=== PATIENT | male | born 1960 | race Caucasian/White ===

== ENCOUNTER 2018-07-14 10:16 | Emergency (ER) | payer OTHER ==
[2018-07-14 10:31] VITALS: BP 141/87; PULSE 91; TEMP 98.4; BMI 30.4
--- NOTE | 2018-07-14 10:52 | PDOC ---
History of Present Illness - General Chief Complaint: Rectal Bleed Stated Complaint: RECTAL BLEED Time Seen by Provider: 07/14/18 10:25 History Source: Patient Exam Limitations: No Limitations - History of Present Illness Initial Comments: 07/14/18 11:14 HPI 58 YOM with no medical history presenting with mildly painful rectal bleeding intermittently x 1 month. He notes when he makes BM, he wipes and there is bright red blood staining the tissue paper. No h/o constipation or diarrhea, usually has regular BMs. Pt notes he has prior history of abscess, s/p uncomplicated I&D by surgeon in his buttock region. Denies fever, chills, chest pain, SOB, palpitation, weakness, N, V, D, abdominal pain, bladder and bowel problems, leg swelling, No sick contacts or travel. No new changes in medications. No suspicious food intake. Allergies: None Past Medical History: as documented in EMR/HPI Social history: Lives with family. No ETOH or drug use. +smoking history. Surgical history: none Meds: as documented in EMR Review of systems Constitutional: no fevers or chills. HEENT: no headache or dizziness. No congestion. No visual/hearing disturbances. CVS: no cp or syncope. Resp: no sob. Gastrointestinal: no abdominal pain, nausea or vomiting, constipation or diarrhea. +rectal bleeding, +rectal pain. Genitourinary: no urinary sx, hematuria. No testicular pain or scrotal pain/ swelling. MUSCULOSKELETAL: No joint pain and swelling. No neck or back pain. SKIN: no redness or skin changes, no discharge, no rash. No wounds. Hematologic: no easy bruising/bleeding. NEUROLOGIC: No headache, dizziness, LOC or altered mental status. No weakness, numbness or tingling. Psych: no anxiety or depression Allergic/Immunologic: no allergies All other systems reviewed and negative, or as documented in HPI. Physical exam: General: Well appearing, awake and alert, NAD. HEENT: NCAT, PERRL, EOMI, clear conjunctiva, anicteric, moist mucus membranes, clear oropharynx, no oral lesions.. Neck: neck supple, FROM Resp: CTAB, normal and even respirations, no respiratory distress CVS: RRR, no murmurs, 2+ peripheral pulses throughout, no peripheral edema Abdomen: soft, NTND, no peritoneal signs. No rebound or guarding. Rectal exam: normal sphincter tone, no gross bleeding, no palp internal hemorrhoids, no external hemorrhoids. No friable masses. +brown stool. No abscess or fluctuance or perianal erythema/mass/fluctuance. no fissures Back: nontender, normal inspection and ROM MSK: no edema, [place] x4, ROM intact. No clubbing or cyanosis. normal bulk and tone. Neuro: alert, no focal neuro deficits. Skin: warm and well perfused, cap refill <2 sec, normal color 07/14/18 11:19 Past History - Past Medical History COPD: No - Suicide/Smoking/Psychosocial Hx Smoking History: Current every day smoker Have you smoked in the past 12 months: Yes Number of Cigarettes Smoked Daily: 20 Information on smoking cessation initiated: Yes Hx Alcohol Use: No Drug/Substance Use Hx: No *Physical Exam - Vital Signs Last Vital Signs Temp Pulse Resp BP Pulse Ox 98.4 F 91 H 20 141/87 98 07/14/18 10:20 07/14/18 10:20 07/14/18 10:20 07/14/18 10:20 07/14/18 10:20 Medical Decision Making - Medical Decision Making 07/14/18 11:15 See HPI for details Vital signs reviewed, wnl. abdomen and rectal exam unremarkable. no gross blood, hemorrhoids, masses or palp s/s infection nontoxic appearing. no labs indicated at this time. doubt abscess of perineal/rectal region. abdomen soft and nontender. no LLQ pain to suggest diverticulitis guaiac on stool card_negative for occult blood. will need outpatient colonoscopy and GI evalulation with age and screening. Pt to be discharged in stable condition. Patient and family made aware of impression and plan, return precautions discussed (including but not limited to worsening pain or symptoms), fevers, or signs of infection, chest pain, respiratory distress, inability to tolerate oral intake, dehydration, syncope, or neurologic changes). Follow up with PMD and/or GI specialists as recommended , follow up information provided, take medications as instructed for duration of time. continue with supportive care, avoid triggers and precipitants. All questions answered to patient's satisfaction and expressed understanding and comfort with this. Patient does not suffer from an acute life-threatening medical condition at this time and is safe for outpatient follow-up. 07/14/18 11:58 *DC/Admit/Observation/Transfer Diagnosis at time of Disposition: Rectal pain - Discharge Dispostion Disposition: HOME Condition at time of disposition: Good Decision to Admit order: No - Referrals Referrals: Steve Tripathi MD [Staff Physician] - Eris Edge MD [Staff Physician] - Roger Daily DO [Staff Physician] - - Patient Instructions Printed Discharge Instructions: High-Fiber Diet, DI for Rectal Bleeding Additional Instructions: Emergency Department visit for rectal pain and bleeding, there is no evidence of bleeding at this time and your examination has been unremarkable. You're to follow-up with [facility], referrals are given for further workup and evaluation. He did not have any signs of infection to suggest anything to drain or to image and evaluate further in the rectal region. You are to follow a high fiber diet to minimize constipation and tearing and fissure formation and injuries likely make a bowel movement. avoid sitting on toilet for long periods of time. you can also use stool softener as needed to ensure adequate and nontraumatizing bowel movements. you should see a GI doctor to establish care and obtain screening coloscopy and further evaluation of your rectal pain. Return precautions include fever, chills, dizziness, abdominal pain, large bowel movement with blood, rectal bleeding, vomiting, diarrhea, passing out, or other worsening symptoms. - Post Discharge Activity
== END 2018-07-14 12:15 | disposition home or self-care (01) ==
LOC: FER 10:16
DX: K62.89 Other specified diseases of anus and rectum (principal); F17.210 Nicotine dependence, cigarettes, uncomplicated
CPT/HCPCS: 36415; 82272; 99282-25

== ENCOUNTER 2019-09-03 21:57 | Emergency (ER) | payer OTHER ==
[2019-09-03 22:02] VITALS: BP 119/74; PULSE 83; TEMP 98.1; BMI 30.4
--- NOTE | 2019-09-03 22:25 | PDOC ---
History of Present Illness - General Chief Complaint: Injury Stated Complaint: HEATHER INJURY Time Seen by Provider: 09/03/19 22:20 History Source: Patient Exam Limitations: No Limitations - History of Present Illness Initial Comments: 09/03/19 22:23 This is a 59-year-old male who comes in complaining of an abrasion to his left upper arm with an associated contusion. Patient was concerned that it may be infected. Patient injured it yesterday. Allergies: as per nursing notes Past Medical History: none Social history: Lives with family. No smoking. No alcohol. No illicit drugs. Surgical history: None General: No fevers or chills, no weakness, no weight loss HEENT: No change in vision. No sore throat,. No ear pain CardioVascular: no chest discomfort. No shortness of breath Respiratory:No cough, or wheezing. Gastrointestinal: no nausea, vomiting, diarrhea or constipation, No rectal bleeding Genitourinary: No dysuria, hematuria, or frequency Musculoskeletal: No joint or muscle pain or swelling left upper arm injury Neurologic: No headache, vertigo, dizziness or loss of consciousness Psychiatric: nor depression Skin: No rashes or easy bruising Endocrine: no increased thirst or abnormal weight change Allergic: no skin or latex allergy All other systems reviewed and normal GENERAL: The patient is awake, alert, and fully oriented, in no acute distress. HEENT:Head is normal with no signs of trauma. Eyes: Pupils equal, round and reactive to light, Ears, and Throat are normal. Neck is supple. No Lymphadenopathy. EXTREMITIES:atraumatic, Normal range of motion, no edema. Left upper arm there is a superficial abrasion with associated contusion there is no increase in warmth, erythema there is no tenderness or purulent discharge. There is no evidence of infection at this time. NEUROLOGICAL: Normal speech, normal gait. PSYCH: Normal mood, normal affect. SKIN: Warm, Dry, normal turgor, no rashes or lesions noted. Assessment and plan: This is a 59-year-old male with a abrasion and contusion to his left upper arm. Patient was reassured that it is not infected at told he could use topical antibiotic ointment on it. Patient discharged. Past History - Medical History Allergies/Adverse Reactions: Allergies Allergy/AdvReac Type Severity Reaction Status Date / Time No Known Allergies Allergy Unverified 09/03/19 21:58 Home Medications: Ambulatory Orders NK [No Known Home Medication] 09/03/19 COPD: No - Psycho-Social/Smoking History Smoking History: Current every day smoker Have you smoked in the past 12 months: Yes Number of Cigarettes Smoked Daily: 20 Information on smoking cessation initiated: Yes 'Breaking Loose' booklet given: 07/14/18 *Physical Exam - Vital Signs Last Vital Signs Temp Pulse Resp BP Pulse Ox 98.1 F 83 16 119/74 97 09/03/19 21:58 09/03/19 21:58 09/03/19 21:58 09/03/19 21:58 09/03/19 21:58 Discharge - Discharge Information Problems reviewed: Yes Clinical Impression/Diagnosis: Abrasion of left upper arm, initial encounter Condition: Stable Disposition: HOME - Admission No - Follow up/Referral - Patient Discharge Instructions Additional Instructions: Return to the emergency department immediately with ANY new, persistent or worsening symptoms. Continue any medications as previously prescribed by your physician. You should follow up with your primary doctor as soon as possible regarding today's emergency department visit. . Please make sure your doctor reviews the results of your emergency evaluation. Thank you for coming to the Emergency Department today for your care. It was a pleasure to see you today. Please note that your evaluation is INCOMPLETE until you follow-up with your doctor. - Post Discharge Activity
== END 2019-09-03 22:26 | disposition home or self-care (01) ==
LOC: FER 21:57
DX: S40.812A Abrasion of left upper arm, initial encounter (principal); Y99.9 Unspecified external cause status
CPT/HCPCS: 99282-25

== ENCOUNTER 2019-10-10 12:31 | Emergency (ER) | payer OTHER ==
[2019-10-10 12:39] VITALS: BP 112/72; PULSE 77; TEMP 98.2; BMI 27.1
[2019-10-10] MEDS ORDERED: DIPHTH,PERTUSS(ACELL),TET 0.5 ML DISP.SYRIN IM ONE ×2 (13:04→13:13)
--- NOTE | 2019-10-10 13:10 | PDOC ---
History of Present Illness - General Chief Complaint: Bite Stated Complaint: i was bit by something r f/s Time Seen by Provider: 10/10/19 13:00 History Source: Patient Exam Limitations: No Limitations - History of Present Illness Initial Comments: 10/10/19 13:05 59 yo M p/w pain to R forearm after being bitten by an unknown insect ~1 hours prior to presentation. 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 Reports pain at the site but no numbness or weakness or drainage. No other medical complaints. Past History - Medical History Allergies/Adverse Reactions: Allergies Allergy/AdvReac Type Severity Reaction Status Date / Time No Known Allergies Allergy Verified 10/10/19 12:33 Home Medications: Ambulatory Orders NK [No Known Home Medication] 09/03/19 COPD: No - Psycho-Social/Smoking History Smoking History: Current every day smoker Have you smoked in the past 12 months: Yes Number of Cigarettes Smoked Daily: 20 Information on smoking cessation initiated: No 'Breaking Loose' booklet given: 07/14/18 - Substance Abuse Hx (Audit-C & DAST Scrn) How often the patient has a drink containing alcohol: Never Score: In Men: 4 or > Positive; In Women: 3 or > Positive: 0 Screen Result (Pos requires Nsg. Audit-10AR): Negative In the last yr the pt used illegal drug/Rx for NonMed reason: No Score: Yes response is considered Positive: 0 Screen Result (Positive result requires Nsg. DAST-10): Negative Review of Systems - Review of Systems Able to Perform ROS?: Yes Comments:: 10/10/19 13:07 ADULT ROS GENERAL/CONSTITUTIONAL: No fever or chills. No weakness. HEAD, EYES, EARS, NOSE AND THROAT: No change in vision. No ear pain or discharge. No sore throat. CARDIOVASCULAR: No chest pain or shortness of breath. RESPIRATORY: No cough, wheezing, or hemoptysis. GASTROINTESTINAL: No nausea, vomiting, diarrhea or constipation. GENITOURINARY: No dysuria, frequency, or change in urination. MUSCULOSKELETAL: No joint or muscle swelling or pain. No neck or back pain. SKIN: As per HPI NEUROLOGIC: No headache, vertigo, loss of consciousness, or change in strength/sensation. ENDOCRINE: No increased thirst. No abnormal weight change. HEMATOLOGIC/LYMPHATIC: No anemia, easy bleeding, or history of blood clots. *Physical Exam - Vital Signs Last Vital Signs Temp Pulse Resp BP Pulse Ox 98.2 F 77 17 112/72 100 10/10/19 12:32 10/10/19 12:32 10/10/19 12:32 10/10/19 12:32 10/10/19 12:32 - Physical Exam 10/10/19 13:08 General: well appearing, NAD Skin: ~9ouh4mb circumferential area of erythema and induration with evidence of skin break in center withotu active drainage or bleeding, no ttp, no fluctuance, mildly increased warmth, no crepitus HEENT: NCAT, MMM Extremities: warm and well perfused, FROM, sensation intact to light touch, no bony tenderness Neuro: Aox3, speech fluent, face symmetric, gait steady, no focal deficits Medical Decision Making - Medical Decision Making 10/10/19 13:10 59 yo M with insect bite, no systemic signs of infection and appears to be local reaction to insect bite on exam, much lower suspicion for cellulitis/infection given duration ~1 hour and more likely local reaction to insect bite. Plan: -tetanus -d/c with return precautions, recommend supportive care and benadryl at home as needed (pt is driving home so will not give benadryl in ED), recommend PMD f/u This clinical encounter is taking place during a federal and state health care emergency attributable to the novel Chen Virus pandemic. The [place] of the Department of Health and Human Services has declared, pursuant to the Public Health Service Act 319F-3 (42 U.S.C. 247d-6d), that a covered persons activities related to medical countermeasures against COVID-19 will be immune from liability under Federal and State law. Discharge - Discharge Information Problems reviewed: Yes Clinical Impression/Diagnosis: Insect bite Qualifiers: Encounter type: initial encounter Site of insect bite: forearm Condition: Stable Disposition: HOME - Admission No - Follow up/Referral - Patient Discharge Instructions Patient Printed Discharge Instructions: DI for Insect Bites and Stings Additional Instructions: You can take 25mg of benadryl every 8 hours as needed for swelling or itching. Return to the ED for new or worsening symptoms. You should follow up with your PMD. Print Language: ARABIC - Post Discharge Activity
== END 2019-10-10 13:25 | disposition home or self-care (01) ==
LOC: FER 12:31
DX: S50.861A Insect bite (nonvenomous) of right forearm, initial encounter (principal)
CPT/HCPCS: 90715; 99283-25

== ENCOUNTER 2023-05-06 15:08 | Emergency (ER) | payer OTHER ==
[2023-05-06 15:37] VITALS: BP 128/77; PULSE 77; RESP 20; TEMP 98; BMI 34.4
== END 2023-05-06 15:50 | disposition home or self-care (01) ==
LOC: FER 15:08
DX: H92.03 Otalgia, bilateral (principal); H61.22 Impacted cerumen, left ear
CPT/HCPCS: 99283-25